=== PATIENT | male | born 1990 | race Caucasian/White ===

== ENCOUNTER 2017-10-19 01:44 | Emergency (ER) | payer OTHER ==
[~2017-10-19] VITALS: Ht 188 cm; Wt 140.5 kg
[2017-10-19 02:06] VITALS: BP 136/69; PULSE 105; TEMP 98.2
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
[2017-10-19] MEDS ORDERED: ACETAMINOPHEN/HYDROcodone 325 MG/5 MG TAB PO ONE (04:00)
[2017-10-19] MEDS ORDERED: TETANUS/DIPHTHERIA TOXOID ADULT 0.5 ML VIAL IM ONE (04:00)
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
[2017-10-19] MEDS ORDERED: HYDR-3516 PO (04:45)
[2017-10-19 05:46] VITALS: RESP 20
== END 2017-10-19 06:12 | disposition home or self-care (01) ==
LOC: NEPD 01:44
DX: S92.002A Unspecified fracture of left calcaneus, initial encounter for closed fracture (principal); S92.252A Displaced fracture of navicular [scaphoid] of left foot, initial encounter for closed fracture; S50.312A Abrasion of left elbow, initial encounter; V42.5XXA Car driver injured in collision with two- or three-wheeled motor vehicle in traffic accident, initial encounter; Z23 Encounter for immunization
CPT/HCPCS: 29515; 73630; 73700; 90714; 96372; 99284; E0113